=== PATIENT | female | born 1990 | race Caucasian/White ===

== ENCOUNTER → 2019-12-17 | Outpatient (CLI) | payer OTHER ==
[2019-12-17 17:33] LABS: BASO % 0.4 % (0.0-1.0); EOS # 0.1 10^3/uL (0.0-0.5); EOS % 1.4 % (0.0-3.0); HEMATOCRIT 34.7 % (36.0-47.0); HEMOGLOBIN 10.4 g/dl (12.0-15.5); LYMPH # 1.2 10^3/uL (1.5-5.0); LYMPH % 15.7 % (24.0-44.0); MEAN CORPUSCULAR HEMOGLOBIN 27.4 pg (27.0-33.0); MEAN CORPUSCULAR VOLUME 91.3 fl (80.0-96.0); MONO # 0.6 10^3/uL (0.0-0.8); MONO % 7.5 % (0.0-5.0); NEUTROPHILS # 5.5 10^3/uL (1.5-8.5); NEUTROPHILS % 74.1 % (36.0-66.0); PLATELET COUNT, AUTOMATED 226 10^3/uL (150-450); WHITE BLOOD COUNT 7.4 10^3/uL (4.0-10.0)
[2019-12-17 17:57] LABS: TOTAL PROTEIN,RANDOM URINE 25.1 MG/DL (0.0-12.0)
[2019-12-17 18:07] LABS: ALT/SGPT 9 U/L (12-78); BILIRUBIN,TOTAL 0.3 MG/DL (0.2-1.0); CREATININE FOR GFR 0.68 MG/DL (0.55-1.30); FREE T4 0.91 NG/DL (0.76-1.46); GLOMERULAR FILTRATION RATE > 60.0 (>60); GLUCOSE CHALLENGE TEST 1 HOUR 95 MG/DL (LESS THAN 140); LDH LACTATE DEHYDROGENASE 149 U/L (84-246)
[2019-12-17 18:21] LABS: RUBELLA IgG QUALITATIVE IMMUNE (IMMUNE)
[2019-12-17 18:50] LABS: HIV 1&2 SCREEN CENTAUR NEGATIVE (NEGATIVE)
[2019-12-17 18:58] LABS: CHLAMYDIA DNA AMPLIFICATION NEGATIVE (NEGATIVE); GC DNA AMPLIFICATION NEGATIVE (NEGATIVE)
[2019-12-19 11:03] LABS: HEPATITIS C VIRUS ABY INDEX < 0.0 INDEX (<0.8)
== END ==
LOC: M PLALAB 11:52
PROVIDERS: ATTEND Advanced Practice Midwife
DX: Z34.92 Encounter for supervision of normal pregnancy, unspecified, second trimester (principal); R53.83 Other fatigue

== ENCOUNTER 2020-01-25 22:26 | Outpatient (CLI) | payer OTHER ==
[~2020-01-25] VITALS: Ht 154.9 cm; Wt 79.6 kg
[2020-01-25 22:51] VITALS: BP 127/67
[2020-01-25] MEDS ORDERED: MAPA500T2 PO (23:17)
[2020-01-25] MEDS ORDERED: CYCL10TA PO (23:17)
[2020-01-25 23:40] LABS: APPEARANCE, URINE CLEAR (CLEAR); BACTERIA, URINE AUTO NEGATIVE (NEGATIVE); BILIRUBIN, URINE AUTO NEGATIVE (NEGATIVE); BLOOD, URINE BLOOD NEGATIVE (NEGATIVE); COLOR, URINE YELLOW (YELLOW); GLUCOSE, URINE (UA) AUTO 1+ mg/dL (NEGATIVE); KETONE, URINE AUTO NEGATIVE (NEGATIVE); LEUKOCYTE ESTERASE, URINE AUTO TRACE (NEGATIVE); NITRITE, URINE AUTO NEGATIVE (NEGATIVE); PROTEIN, URINE AUTO NEGATIVE (NEGATIVE); RBC, URINE AUTO 2 /HPF (0-3); SPECIFIC GRAVITY URINE AUTO 1.024 (1.002-1.035); SQUAMOUS EPITHELIAL CELL UR AU 1 /HPF (0-6); UROBILINOGEN, URINE AUTO 0.2 mg/dL (0.0-2.0); WBC, URINE AUTO 2 /HPF (0-3)
== END 2020-01-26 00:27 | disposition home or self-care (01) ==
LOC: M LDO 22:26
PROVIDERS: ATTEND Obstetrics & Gynecology
DX: O26.899 Other specified pregnancy related conditions, unspecified trimester (principal); M54.9 Dorsalgia, unspecified; Z3A.00 Weeks of gestation of pregnancy not specified

== ENCOUNTER → 2020-01-29 | Outpatient (REF) | payer OTHER ==
[~2020-01-29] MED LIST: CYCL10TA PO; MAPA500T2 PO
== END ==
LOC: M SFHCWAGY 10:08
PROVIDERS: ATTEND Nurse Practitioner Women's Health
DX: Z36.85 Encounter for antenatal screening for Streptococcus B (principal); Z3A.36 36 weeks gestation of pregnancy

== ENCOUNTER → 2020-02-05 | Outpatient (REF) | payer OTHER | LOC: M PLALAB 13:45 | PROVIDERS: ATTEND Advanced Practice Midwife | DX: O99.333 Smoking (tobacco) complicating pregnancy, third trimester (principal); F17.210 Nicotine dependence, cigarettes, uncomplicated; Z3A.00 Weeks of gestation of pregnancy not specified ==

== ENCOUNTER 2020-02-28 02:36 | Inpatient (IN) | payer OTHER ==
[~2020-02-28] VITALS: Ht 154.9 cm; Wt 83.3 kg
[2020-02-28] VITALS (21 sets, daily range): BP systolic 102–163; BP diastolic 51–78
[~2020-02-28 02:36] MED LIST changes: +CYCL-707 PO; -CYCL10TA PO
[2020-02-28] MEDS ORDERED: LACTATED RINGER'S 1000 ML IV STA (03:41)
--- NOTE | 2020-02-28 04:04 | HPEPDOC ---
Obstetrical History & Physical General Date of Admission February 28, 2020 History of Present Illness Chief Complaint: Contractions, term Age: 29 : 5 Term: 3 Pre-term: 0 Abortions: 1 Livin Care Care: Limited Care (entry to care 26 weeks) Dating Final EDC: Feb 26, 2020 Final EDC by: 2nd trimester (US) EGA at Admission: 40 (+2) Antepartum Course Admission Weight (lbs.): 182 Past Medical History Past Obstetrical History #1: Past Obstetrical History: Primgravida (2011) Type of Delivery: Spontaneous Vaginal Del. (37wks) Sex of : Male (5#3) Complications: No Past Obstetrical History #2: Past Obstetrical History: Multigravida (2012) Type of Delivery: Spontaneous Vaginal Del. 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 Past Medical History Surgical History: Tonsilectomy Family History Significant Family History: Hypertension Social History Marital Status: Single Family situation: Spouse/partner home Psychosocial History: No pertinent psych hx * Smoker: current smoker Alcohol: Denies Drugs: denies Abuse Violence Screening Have you been hit/kicked/slapp: No Have you been sexually assault: No Imunizations Tdap status: declined Allergies Coded Allergies: No Known Allergies (Verified Allergy, Unknown, 01/25/20) Medications Miscellaneous Medications Acetaminophen (Mapap) 500 Mg Tablet, 1,000 MG PO Physical Examination Physical Examination GENERAL: Alert and oriented times three. BREAST: . ABDOMEN: Gravid and non-tender to touch. FETUS: Is vertex (VTX) by sterile vaginal examination (SVE), fetus is vertex (VTX) by Canelo. HEART RATE: Regular rate and rhythm. LUNGS: Clear to auscultation (CTA). EXTREMITIES: No edema. No clonus. Deep tendon reflexes (DTRs) + 2. Vital Signs/I&O Vital Signs Date Time Temp Pulse Resp B/P (MAP) Pulse Ox O2 Delivery O2 Flow Rate FiO2 02/28/20 02:58 97.3 98 17 125/74 (91) Pertinent Laboratoy Data Blood Type: A+ RBC Antibody Screen: Negative HIV: Negative Hepatitis B: Negative Hepatitis C: Negative Rapid Plasma Reagin: Nonreactive Rubella: Immune Chlamydia/Gonorrhea: Negative Group B Streptococcus: Negative Quad Screen Test: Unknown Glucose Tolerance Test: 95 Anatomy Ultrasound Ultrasound Date: Nov 21, 2019 Placenta Location: Posterior Normal Anatomy: Yes Placenta Previa: No Estimated Weight (grams): 883 (62%) Other Ultrasounds 09/29/19 dating [facility]UP 18w4d, EFW 243g Steroid Therapy Steroid Therapy: No Vaginal Examination Dilation: 2cm (-3) Effacement: 50% Station: -2 Cervical Consistency: Soft Cervical Position: Middle Presentation: Cephalic presentation Assessment Heart Rate (FHR): 145 Variability: Moderate Accelerations: Positive Decelerations: None Tocometer Contractions: Yes Frequency: every 2-5 min. Duration: greater than 60 seconds Strength: palpated as moderate Assessment/Plan Assessment Carol Ann is a 29-year-old (G)5 para (P)3-0-1-3 at 40+2 weeks by 18-week ultrasound. Presents to Labor and Delivery (L&D) with complaints of contractions, pressure and difficulty walking. States she had "green" discharge on wipe. Reports decreased movement. Spec exam neg nitrazine, neg fern, white creamy discharge. Plan Admit and orient. Risk Assessment Analyst and consent. Diet: clear. Group B Streptococcus (GBS) negative. Labs and intravenous (IV) per unit protocol. Counseled on Pitocin and induction of labor (IOL). Lactated Ringers (LR): Bolus 500 mL, then at 125 mL/hr. Pt plans to labor ad portia Anticipate [normal spontaneous delivery (). C-S as appropriate. Tierra Ortez CNM Feb 28, 2020 04:04
[2020-02-28 04:20] LABS: HEMATOCRIT 31.3 % (36.0-47.0); HEMOGLOBIN 10.1 g/dl (12.0-15.5); MEAN CORPUSCULAR HEMOGLOBIN 25.6 pg (27.0-33.0); MEAN CORPUSCULAR HGB CONC 32.3 g/dl (32.0-36.5); MEAN CORPUSCULAR VOLUME 79.2 fl (80.0-96.0); PLATELET COUNT, AUTOMATED 329 10^3/uL (150-450); RED BLOOD COUNT 3.95 10^6/uL (4.00-5.40); WHITE BLOOD COUNT 10.7 10^3/uL (4.0-10.0)
[2020-02-28] MEDS: LR 1,000 ML IV SCH ×2 (04:22→10:39)
[2020-02-28 04:30] LABS: APPEARANCE, URINE CLEAR (CLEAR); BACTERIA, URINE AUTO NEGATIVE (NEGATIVE); BILIRUBIN, URINE AUTO NEGATIVE (NEGATIVE); BLOOD, URINE BLOOD 2+ (NEGATIVE); COLOR, URINE STRAW (YELLOW); GLUCOSE, URINE (UA) AUTO NEGATIVE (NEGATIVE); KETONE, URINE AUTO NEGATIVE (NEGATIVE); LEUKOCYTE ESTERASE, URINE AUTO TRACE (NEGATIVE); MUCUS, URINE SMALL (NEGATIVE); NITRITE, URINE AUTO NEGATIVE (NEGATIVE); PROTEIN, URINE AUTO NEGATIVE (NEGATIVE); RBC, URINE AUTO 1 /HPF (0-3); SPECIFIC GRAVITY URINE AUTO 1.009 (1.002-1.035); SQUAMOUS EPITHELIAL CELL UR AU 1 /HPF (0-6); UROBILINOGEN, URINE AUTO 0.2 mg/dL (0.0-2.0); WBC, URINE AUTO 1 /HPF (0-3)
[2020-02-28 04:44] LABS: ALT/SGPT 15 U/L (12-78); BILIRUBIN,TOTAL 0.3 MG/DL (0.2-1.0); CREATININE FOR GFR 0.71 MG/DL (0.55-1.30); GLOMERULAR FILTRATION RATE > 60.0 (>60); LDH LACTATE DEHYDROGENASE 204 U/L (84-246); URIC ACID 4.7 MG/DL (2.6-6.0)
[2020-02-28 04:54] LABS: CREATININE,RANDOM URINE 36.1 MG/DL; TOTAL PROTEIN,RANDOM URINE 10.9 MG/DL (0.0-12.0)
[2020-02-28] MEDS ORDERED: LR 1,000 ML IV SCH (10:04)
[2020-02-28] MEDS ORDERED: OXYTOCIN DRIP 30 UNITS in IV 1 EA IV SCH ×2 (10:15→16:30)
--- NOTE | 2020-02-28 16:13 | DNPDOC ---
[facility]– [place] Delivery Note Delivery Note DATE OF DELIVERY: 02/28/2020 TIME OF : 1434 GENDER:, Female. APGARS:, 9 and 9. WEIGHT:, 4000 grams or 8 pounds 13 ounces. LACERATIONS: Frst-degree midline laceration ANESTHESIA: Epidural. ESTIMATED BLOOD LOSS: 300ml COUNTS: 5 laparotomy sponges accounted for prior to after delivery. Two sharps removed delivery field. DELIVERY NOTE: 02/28/2020, Ms Humberto hobson 29yo G5, now P4, had a spontaneous vaginal delivery of viable female , Apgars 9 and 9. Weight was 4000 g or 8 lbs. 13 oz. Head was delivered [occiput anterior (OA), followed by delivery of the shoulders and corpus. Infant was handed to mom with a good cry. Cord was clamped times two and was cut. Placenta was then drained and delivered grossly intact. A premixed bag of 500 mL of normal saline with 30 units of Pitocin was then bolused along with uterine massage until the uterus was firm. On inspection,. There was a first-degree midline laceration which was repaired with 3-0 Vicryl. On reinspection, cervix, vagina, perineum was grossly intact and hemostatic. Mom and baby in recovery on stable condition. The couples decided to remain in daughter [place]ia. DEJON CHAVEZ MD. Feb 28, 2020 16:13
[2020-02-28] MEDS ORDERED: MEASLES,MUMPS,RUBELLA VACCINE INJ (MMR-II) (90707) SC SCH (16:15)
[2020-02-28] MEDS ORDERED: METHYLERGONOVINE MALEATE 0.2 MG TAB PO PRN (16:15)
[2020-02-28] MEDS ORDERED: MOM 30ML SUSPENSION UDC PO PRN (16:15)
[2020-02-28] MEDS ORDERED: IBUPROFEN 600 MG TAB PO PRN (16:15)
[2020-02-28] MEDS ORDERED: RHOGAM 300 MCG (1500 IU) INJ (J2790) IM SCH (16:15)
[2020-02-28] MEDS ORDERED: ACETAMINOPHEN TAB 650MG DOSE (2X325MG) PO PRN (16:15)
[2020-02-28] MEDS ORDERED: DOCUSATE SODIUM 100 MG CAP PO PRN (16:15)
[2020-02-28] MEDS ORDERED: ANUSOL HC CREAM 30GM TOP PRN (16:15)
[2020-02-28] MEDS ORDERED: DIBUCAINE 1% OINTMENT 30GM TOP PRN (16:15)
[2020-02-28] MEDS: IBUPROFEN 800 MG TAB PO PRN (16:28)
[2020-02-28] MEDS ORDERED: LIDOCAINE 1% MDV 20ML VIAL INFIL ONE (17:00)
[2020-02-28] MEDS: ACETAMINOPHEN 500 MG TAB PO PRN (18:46)
[2020-02-29] MEDS: IBUPROFEN 800 MG TAB PO PRN ×3 (00:38→17:22)
[2020-02-29] MEDS: ACETAMINOPHEN 500 MG TAB PO PRN ×3 (04:22→23:37)
[2020-02-29 05:54] VITALS: BP 106/58
[2020-02-29] MEDS: PRENATAL VITAMINS CHEWABLE TABLET PO SCH (08:13)
--- NOTE | 2020-02-29 13:33 | IPNPDOC ---
Progress Note Date of Service: Feb 29, 2020 Day#: 1 Progress Note SUBJECT: Carol Ann is a 29-year-old now status post uncomplicated spontan eous vaginal delivery at full term at 1434 on 02/28/20 of a living female weighting 8 lbs 13 oz./4000 grams. She had a first degree vaginal laceration and repair. She has been ambulating, voiding spontaneously without issue and tolerating regular diet. OBJECTIVE: VITAL SIGNS: Within normal limits, afebrile. Alert and oriented times three. Breath sounds clear to auscultation. Heart rate: Regular rate and rhythm, no murmurs, rubs or gallops. Abdomen: Fundus firm at U-1. Soft, NTTP. Minimal to moderate lochia. ASSESSMENT: Day 1 PLAN: 1. Discharge to home tomorrow after PFS consultation. 2. Tylenol and Motrin for pain. VS, I&O, 24H, Fishbone Vital Signs/I&O Vital Signs Date Time Temp Pulse Resp B/P (MAP) Pulse Ox O2 Delivery O2 Flow Rate FiO2 02/29/20 05:54 97.6 78 17 106/58 (74) 100 Room Air I&O- Last 24 Hours up to 6 AM 02/29/20 05:59 Intake Total 1812 ml Output Total 1375 ml Balance 437 ml HELADIO KEENAN CNM Feb 29, 2020 13:33
[2020-02-29 18:00] VITALS: BP 110/64
[2020-03-01] MEDS: IBUPROFEN 800 MG TAB PO PRN (05:08)
[2020-03-01 06:00] VITALS: BP 112/63
[2020-03-01] MEDS: PRENATAL VITAMINS CHEWABLE TABLET PO SCH (08:53)
[2020-03-01] MEDS ORDERED: IBUP80TA PO (11:55)
[2020-03-01] MEDS ORDERED: ACET-683 PO (11:55)
== END 2020-03-01 12:15 | disposition home or self-care (01) | DRG 560 ==
LOC: M LDO 02:36 → M LDI 04:09 → M OBS 17:06
PROVIDERS: ADMIT Advanced Practice Midwife; ATTEND Advanced Practice Midwife
PROC: 10E0XZZ Delivery of Products of Conception, External Approach (ICD-10-PCS; principal; 2020-02-28)
PROC: 0HQ9XZZ Repair Perineum Skin, External Approach (ICD-10-PCS; 2020-02-28)
DX: O48.0 Post-term pregnancy (principal); Z37.0 Single live birth; Z3A.40 40 weeks gestation of pregnancy; O70.0 First degree perineal laceration during delivery

== ENCOUNTER → 2024-02-22 | Outpatient (REF) | payer OTHER ==
[~2024-02-22] MED LIST changes: +ACET-683 PO; +IBUP80TA PO
[2024-02-22 17:09] LABS: HCG, SERUM QUANTITATIVE < 2.6 MIU/ML (<4.2)
[2024-02-22 17:41] LABS: HCG, SERUM QUALITATIVE NEGATIVE (NEGATIVE)
== END ==
LOC: M LAB REF 16:11
PROVIDERS: ATTEND Physician Assistant
DX: Z33.1 Pregnant state, incidental (principal)